=== PATIENT | female | born 1950 ===

== ENCOUNTER 2017-01-12 15:52 | Emergency (ER) | payer MEDICARE, MEDICAID ==
[2017-01-12 16:34] VITALS: BP 158/68
--- NOTE | 2017-01-12 16:34 | UC ---
Lower Extremity/Ankle HPI - HPI Summary HPI Summary: Patient has hx of DM, and is on peritineal dialysis nightly. she noticed an ulceration in the side of the rigth 4th toe. she has poor sensation to touch and sharp, but can feel the pain in the toe, through the foot up to the lower portion of the lower leg, toes foot and lower extremity erythema noted. onychomycosis of all toes. - History of Current Complaint Stated Complaint: RIGHT FOOT PAIN Time Seen by Provider: 01/12/17 16:23 Hx Obtained From: Patient ?: No Onset/Duration: Sudden Onset, Lasting Days Severity Initially: Moderate Severity Currently: Moderate Aggravating Factor(s): Nothing Alleviating Factor(s): Nothing Able to Bear Weight: No - Allergies/Home Medications Allergies/Adverse Reactions: Allergies Allergy/AdvReac Type Severity Reaction Status Date / Time Erythromycin Allergy Unknown Swelling Verified 01/12/17 16:39 Of Face,Lips,& Throat Lisinopril Allergy Coughing Verified 01/12/17 16:39 PMH/Surg Hx/FS Hx/Imm Hx Previously Healthy: No Endocrine History Of: Reports: Diabetes Cardiovascular History Of: Reports: Cardiac Disorders - murmur, Hypertension - ON MEDS, Congestive Heart Failure - HOSPITALIZED 12/26/12 FOR CHF GI/ History Of: Denies: Renal Disease Psychological History Of: Reports: Anxiety - 30 YEARS AGO - Surgical History Surgical History: Yes Surgery Procedure, Year, and Place: [place] [facility] [place]ARDI[place] CATH[place]26/12 - Family History Known Family History: Positive: Hypertension, Renal Disease - Social History Substance Use Type: None Review of Systems Constitutional: Negative Skin: Other - redness Eyes: Negative ENT: Negative Respiratory: Negative Cardiovascular: Negative Gastrointestinal: Negative Genitourinary: Negative Motor: Weakness Neurovascular: Decreased Sensation, Decreased Pulses Musculoskeletal: Arthralgia, Decreased ROM, Edema, Myalgia Neurological: Negative Psychological: Negative All Other Systems Reviewed And Are Negative: Yes Physical Exam Triage Information Reviewed: Yes Appearance: Ill-Appearing, Pain Distress, Obese Vital Signs Reviewed: Yes Eye Exam: Normal ENT Exam: Normal ENT: Positive: Hearing grossly normal, Pharynx normal, TMs normal Dental Exam: Normal Neck exam: Normal Neck: Positive: Supple, Nontender, No Lymphadenopathy Respiratory Exam: Normal Respiratory: Positive: Chest non-tender, Lungs clear, Normal breath sounds Cardiovascular Exam: Normal Cardiovascular: Positive: RRR, No Murmur, Pulses Normal Abdominal Exam: Normal Abdomen Description: Positive: Nontender, No Organomegaly, Soft Bowel Sounds: Positive: Present Musculoskeletal Exam: Normal Musculoskeletal: Positive: Strength Limited @ - at baseling, ROM Limited @ - in right lower leg due to swelling, Edema @ - in right leg from hip down Neurological Exam: Normal Neurological: Positive: Alert, Muscle Tone Normal Psychological Exam: Normal Skin: Positive: significant lesion(s) - ulceration on the 4th toe, surrounded by purple ring and blanchable erythema in all toes and foot, up the lower 3rd of the lower leg. Lower Extremity Course/Dx - Course Course Of Treatment: hx obtained, exam performed, meds reviewed, discussed case with Dr Vasquez, contacted [facility] and spoke with Dolores Cota NP who is willing to see erh in ED for further eval and treatment. patient is inagreement and paperwork signed for refusal of ambulance. - Differential Dx/Diagnosis Differential Diagnosis/HQI/PQRI: Cellulitis, DVT, Infection, Phlebitis, Other - pressure ulcer cellulitis renal disease Provider Diagnoses: cellulitis. renal disease. pressure ulcer - Physician Notifications Discussed Patient Care With: Bhavana Garcia NP Instructed by Provider To: Will See In ED Discharge - Discharge Plan Condition: Stable Disposition: AGAINST MEDICAL ADVICE
== END 2017-01-12 17:06 | disposition left against medical advice (07) ==
LOC: UCCORT 15:52
DX: L03.115 Cellulitis of right lower limb (principal); L89.899 Pressure ulcer of other site, unspecified stage; B35.1 Tinea unguium; E11.9 Type 2 diabetes mellitus without complications; I10 Essential (primary) hypertension; R01.1 Cardiac murmur, unspecified; I50.9 Heart failure, unspecified; F41.9 Anxiety disorder, unspecified; N28.9 Disorder of kidney and ureter, unspecified; E66.9 Obesity, unspecified; Z88.1 Allergy status to other antibiotic agents
CPT/HCPCS: 99203; G0463